=== PATIENT | male | born 1980 | race Caucasian/White ===

== ENCOUNTER → 2020-11-03 13:47 | Outpatient (CLI) | payer MEDICAID, SELFPAY ==
[2020-11-03 14:04] LABS: Chloride 101 mmol/L (98-107)
[2020-11-03 14:05] LABS: Potassium 5.1 mmoL/L (3.5-5.1); Sodium 138 mmol/L (136-145)
[2020-11-03 14:07] LABS: Alanine Aminotransferase 86 U/L (12-78); Albumin Level 4.7 g/dl (3.5-5.0); Albumin/Globulin Ratio 1.5 (1.1-1.8); Alkaline Phosphatase 98 U/L (38-126); Anion Gap 13.1 mEq/L (5-15); Aspartate Amino Transferase 63 U/L (17-59); Bilirubin,Total 0.7 mg/dl (0.2-1.3); Blood Urea Nitrogen 12 mg/dl (9-20); Carbon Dioxide 29 mmol/L (22.0-30.0); Cholesterol 187 mg/dl (140-200); Estimated Glomerular Filt Rate 124 ml/min (>60); GFR (African American) 150 ML/MIN (>60); Globulin 3.2 g/dL (1.3-3.2); Total Protein,Serum 7.9 g/dl (6.3-8.2); Triglycerides 92 mg/dl (30-150); VLDL Cholesterol 18 mg/dL (0-40)
[2020-11-03 14:08] LABS: Calcium 10.1 mg/dl (8.4-10.2); Chol/HDL Ratio 3.2 (1-3.5); Glucose 105 mg/dl (74-100); HDL Cholesterol 58 mg/dl (40-60)
[2020-11-03 14:13] LABS: Basophils # 0.1 K/mm3 (0-0.2); Basophils % 1.2 % (0.1-2.0); Eosinophils # 0.4 K/mm3 (0.0-0.4); Hematocrit 52.7 % (42.0-52.0); Hemoglobin 17.4 g/dL (14.1-18.0); Lymphocytes # 3.4 K/mm3 (0.7-4.5); Lymphocytes % 40.8 % (10-50); Mean Corpuscular Volume 87.9 fl (80-94); Mean Platelet Volume 7.5 fl (7.4-10.4); Monocytes # 0.5 K/mm3 (0.1-1.0); Monocytes % 6.3 % (1.7-9.3); Neutrophils # 3.9 K/mm3 (1.8-7.8); Neutrophils % 46.7 % (37.0-80.0); Platelet Count 322 K/mm3 (142-424); Red Blood Count 5.99 M/mm3 (4.60-6.20); Red Cell Distribution Width 13.1 % (11.5-17.5); White Blood Count 8.4 K/mm3 (4.8-10.8)
[2020-11-03 14:19] LABS: Direct LDL Cholesterol 100.75 mg/dL (100-129)
[2020-11-03 14:25] LABS: T4 (Thyroxine) 11.7 ug/dl (5.53-11.0)
[2020-11-03 14:26] LABS: 25-OH Vitamin D, Total 43.3 ng/mL (30-100)
[2020-11-03 14:39] LABS: Thyroid Stimulating Hormone 1.35 uIU/mL (0.465-4.68)
[2020-11-05 10:11] LABS: Hep A Ab, IgM Negative (Negative); Hepatitis B Core Antibody IgM Negative (Negative); Hepatitis B Surface Antigen Negative (Negative)
[2020-11-05 10:41] LABS: Hepatitis C Antibody >11.0 s/co ratio (0.0-0.9)
== END ==
PROVIDERS: Visit Provider Nurse Practitioner Family
DX: Z00.00 Encounter for general adult medical examination without abnormal findings (principal); E55.9 Vitamin D deficiency, unspecified; B19.20 Unspecified viral hepatitis C without hepatic coma
CPT/HCPCS: 80053; 80061; 80074; 82306; 84436; 84443; 85025

== ENCOUNTER 2024-03-18 08:08 | Emergency (ER) | payer OTHER, SELFPAY ==
[2024-03-18 08:14] VITALS: BP 154/125; PULSE 97; O2SAT 98
[2024-03-18 08:16] VITALS: BP 140/89; PULSE 107; RESP 20; TEMP 36.9; O2SAT 99; BMI 25.8
[2024-03-18 08:31] VITALS: BP 140/89; PULSE 87; O2SAT 99
--- NOTE | 2024-03-18 08:35 | ED_ITS ---
Discharge Plan Disposition Patient Disposition: Home, Self-Care Chief Complaint: Urogenital-Male Prescriptions Prescriptions: No Action No Known Home Medications Referrals Follow up/Referrals: Provider,Referral, [Primary Care Provider] - See instructions Clinical Impressions Clinical Impression: Genital herpes simplex Print Language Print Language: Korean Discharge ED Provider: Karolina Vera General Adult HPI General Chief complaint: Urogenital-Male Stated complaint: painful busted bumps on testicles Time Seen by Provider: 03/18/24 08:42 Mode of Arrival: Ambulatory Source of Information: Patient Limitations: No Limitations Description of Symptoms (Recalled from ER Triage Doc. by RN): pt to ed c/o left testicular boil. pt states he first noticed it monday and since then it has busted open. pt denies urinary symptoms. History of Present Illness HPI narrative: Patient is a 43-year-old with past medical history significant for marijuana use tobacco use disorder and lack of primary care access presents to the emergency department for 3 days of painful blisters on the penis that have busted open. He also notes redness at the area. Patient does have sexual partners unknown if they have sexually transmitted diseases. Denies this urea or increased urinary frequency denies pain with ejaculation or discharge. Has never been screened for sexually transmitted diseases. No diarrhea abdominal pain cough congestion or fever. Related Data Home Medications ?Medication ?Instructions ?Recorded ?Confirmed No Known Home Medications 11/03/20 11/03/20 Allergies Allergy/AdvReac Type Severity Reaction Status Date / Time NO KNOWN ALLERGIES Allergy Uncoded 11/03/20 10:06 [facility] Disclaimer: The information contained in this section may have been updated after the patient was seen, as this information can be updated by other users. Social History Smoking Status: Current every day smoker tobacco type: cigarettes packs per day: 1 alcohol intake: never current occupational status: employed Travel in the last 8 weeks: None ROS Obtained: Yes All systems reviewed & no additional complaints except as documented Physical Exam General General appearance: alert and in no apparent distress Head Head exam: atraumatic and normocephalic Eye Eye exam: Present normal appearance and PERRL ENT ENT exam: Present normal exam, normal oropharynx and other (No oropharyngeal lesions) Neck Neck exam: Present normal inspection Chest Chest inspection: Present normal inspection and symmetric chest wall rise Respiratory Respiratory exam: Absent respiratory distress Cardiovascular Cardiovascular exam: Present regular rate and normal rhythm Abdominal Exam Abdominal exam: Present soft; Absent distention or tenderness exam: Present other (Blistering vesicles on the left lateral penile shaft); Absent testicular tenderness, urethral discharge or scrotal swelling Neurological Exam Neurological exam: Present alert and oriented X3 Lymphatic Lymphatic Findings: no adenopathy Medical Decision Making Gómez Inquiry Pt receiving controlled substance: No Vital Signs: 03/18/24 08:16 Temperature 98.5 F Temperature Source Oral Pulse Rate [Left Radial] 107 H Respiratory Rate 20 Blood Pressure [Right Arm] 140/89 Blood Pressure Mean [Right Arm] 106 02 Sat by Pulse Oximetry 99 Oxygen Delivery Method Room Air Orders (Tests/Meds): ED MEDICATIONS Generic Name Dose Route Start Last Admin Trade Name Freq PRN Reason Stop Dose Admin Ceftriaxone Sodium 500 mg 03/18/24 08:33 Ceftriaxone 500mg Vial IM 03/18/24 08:34 ONCE ONE Lidocaine HCl 0 ml 03/18/24 08:33 Lidocaine 1% 5ml Pf Vial IM 03/18/24 08:34 ONCE ONE ORDERS Category Date Time Status Chlam/Gono/Mycoplasma Panel Stat Lab 03/18/24 08:33 Ordered HIV (1&2) Antibody Rapid Stat Lab 03/18/24 08:33 Ordered Hep C Ab with Reflex to RNA Stat Lab 03/18/24 08:33 Ordered Rapid Plasma Reagin Ab Titer Stat Lab 03/18/24 08:33 Ordered Medical Decision Narrative: Patient is a 43-year-old with past medical history significant for lack of primary care access and tobacco use disorder presents with painful vesicles on penile shaft. Upon presentation hemodynamically stable saturating appropriately on room air afebrile no acute distress. Differential diagnosis includes chlamydia gonorrhea HIV syphilis herpes. Physical exam is most consistent with herpetic lesions. Patient agreeable to prophylactically treat for gonorrhea chlamydia and herpes at this time. Patient given referral for primary care to follow-up hepatitis C HIV RPR gonorrhea and Chlamydia testing. Patient received 500 mg IM ceftriaxone and discharged with prescription for valacyclovir and doxycycline for prophylactic treatment of sexually transmitted infections. Critical Care Critical Care Time Critical Care Time: No
[2024-03-18 09:00] VITALS: BP 132/104; PULSE 79; O2SAT 96
[2024-03-18 10:00] VITALS: BP 125/90; PULSE 69; O2SAT 95
[2024-03-18] MEDS: LIDOCAINE 1% 5ML PF VIAL IM (10:22)
[2024-03-18] MEDS: cefTRIAXone 500MG VIAL 500 MG IM (10:22)
--- NOTE | 2024-03-18 10:26 | PC.NURSE ---
at to update pt on results
[2024-03-18 10:49] VITALS: BP 125/90; PULSE 96; RESP 16; TEMP 36.7
[2024-03-18 16:10] LABS: HIV (1&2) Antibody Rapid NONREACTIVE (NONREACTIVE)
[2024-03-19 14:12] LABS: Rapid Plasma Reagin Ab Titer Non Reactive titer (NonRea<1:1)
[2024-03-20 20:04] LABS: HCV Ab Reactive (Non Reactive)
[2024-03-21 06:16] LABS: Neisseria gonorrhoeae, NAA Negative (Negative)
== END 2024-03-18 10:50 | disposition home or self-care (01) ==
PROVIDERS: Emergency Provider Student in an Organized Health Care Education/Training Program
DX: A60.01 Herpesviral infection of penis (principal); F17.210 Nicotine dependence, cigarettes, uncomplicated; B19.20 Unspecified viral hepatitis C without hepatic coma
CPT/HCPCS: 86593; 87491; 87591; 96372; 99283; J0696

== ENCOUNTER 2024-03-27 16:32 | Outpatient (CLI) | payer MEDICAID, SELFPAY ==
[2024-03-27 17:30] LABS: Basophils # 0.2 K/mm3 (0-0.2); Basophils % 1.8 % (0.1-2.0); Eosinophils # 0.4 K/mm3 (0.0-0.4); Eosinophils % 3.4 % (0.1-12.0); Hematocrit 55.7 % (42.0-52.0); Hemoglobin 17.9 g/dL (14.1-18.0); Lymphocytes # 4.4 K/mm3 (0.7-4.5); Lymphocytes % 38.1 % (10-50); Mean Corpuscular HGB Conc 32.2 g/dL (31.8-35.4); Mean Corpuscular Hemoglobin 30.3 pg (27.0-31.2); Mean Corpuscular Volume 94.1 fl (80-94); Mean Platelet Volume 8.4 fl (7.4-10.4); Monocytes # 0.6 K/mm3 (0.1-1.0); Monocytes % 4.7 % (1.7-9.3); Neutrophils % 51.9 % (37.0-80.0); Platelet Count 275 K/mm3 (142-424); Red Blood Count 5.92 M/mm3 (4.60-6.20); Red Cell Distribution Width 13.9 % (11.5-17.5); White Blood Count 11.6 K/mm3 (4.8-10.8)
[2024-03-27 17:34] LABS: INR 0.95 (0.9-1.1); Prothrombin Time 10.7 seconds (10.1-12.5)
[2024-03-27 18:33] LABS: 25-OH Vitamin D, Total 45.7 ng/mL (30-100)
[2024-03-27 18:35] LABS: Sodium 140 mmol/L (136-145)
[2024-03-27 18:37] LABS: Alanine Aminotransferase 65 U/L (12-78); Albumin Level 4.6 g/dl (3.5-5.0); Albumin/Globulin Ratio 1.4 (1.1-1.8); Anion Gap 11.6 mEq/L (5-15); Aspartate Amino Transferase 55 U/L (17-59); Bilirubin,Total 0.8 mg/dl (0.2-1.3); Blood Urea Nitrogen 12 mg/dl (9-20); Calcium 9.4 mg/dl (8.4-10.2); Carbon Dioxide 32 mmol/L (22.0-30.0); Chloride 101 mmol/L (98-107); Cholesterol 187 mg/dl (140-200); Estimated Glomerular Filt Rate 105 ml/min (>60); GFR (African American) 126 ML/MIN (>60); Globulin 3.2 g/dL (1.3-3.2); Glucose 77 mg/dl (74-100); Potassium 4.6 mmoL/L (3.5-5.1); Total Protein,Serum 7.8 g/dl (6.3-8.2); Triglycerides 168 mg/dl (30-150); VLDL Cholesterol 34 mg/dL (0-40)
[2024-03-27 18:38] LABS: Alkaline Phosphatase 80 U/L (38-126); Chol/HDL Ratio 4.3 (1-3.5); Direct LDL Cholesterol 106 mg/dL (100-129); HDL Cholesterol 43 mg/dl (40-60)
[2024-03-27 21:42] LABS: Hemoglobin A1C 5.8 % (4.0-6.0)
[2024-03-28 14:12] LABS: HIV (1&2) Antibody Rapid NONREACTIVE (NONREACTIVE)
[2024-03-29 05:23] LABS: Hep A Ab, Total Negative (Negative); Hep B Core Ab, Total Positive (Negative); Hep B Surface Ab, Qual Non Reactive (.); Hepatitis B Surface Antigen Negative (Negative)
[2024-03-31 20:28] LABS: HCV Genotype Charge YES; Hepatitis C Genotype 1a (.)
[2024-04-08 10:29] LABS: Hepatitis C Antibody REACTIVE
[2024-04-08 10:30] LABS: Fibrosis Score 0.57; Fibrosis Stage F2; Necroinflammat Activity Score 0.47
[2024-04-08 10:31] LABS: Alpha 2-Macroglobulins, Qn 374 mg/dL; Apolipoprotein A-1 125 mg/dL; Bilirubin, Total 0.4 mg/dL; Haptoglobin 159 mg/dL; Necroinflammat Activity Grade A1-A2
[2024-04-08 10:32] LABS: ALT (SGPT) P5P 62 IU/L; GGT 87 IU/L
== END 2024-03-27 23:59 | disposition home or self-care (01) ==
LOC: LAB 16:33
PROVIDERS: PCP Nurse Practitioner Family; Visit Provider Nurse Practitioner Family
DX: B18.2 Chronic viral hepatitis C (principal)
CPT/HCPCS: 36415; 80053; 80061; 81596; 82306; 83036; 85025; 85610; 86704; 86706; 86708; 87340; 87380; 87522; 87902

== ENCOUNTER 2024-10-04 09:11 | Outpatient (CLI) | payer OTHER, SELFPAY ==
[2024-10-04 10:43] LABS: Alanine Aminotransferase 23 U/L (12-78); Albumin Level 4.9 g/dl (3.5-5.0); Albumin/Globulin Ratio 1.7 (1.1-1.8); Aspartate Amino Transferase 31 U/L (17-59); Blood Urea Nitrogen 9 mg/dl (9-20); Calcium 9.4 mg/dl (8.4-10.2); Carbon Dioxide 27 mmol/L (22.0-30.0); Chloride 105 mmol/L (98-107); Estimated Glomerular Filt Rate 121 ml/min (>60); GFR (African American) 147 ML/MIN (>60); Globulin 2.9 g/dL (1.3-3.2); Glucose 88 mg/dl (74-100); Sodium 137 mmol/L (136-145); Total Protein,Serum 7.8 g/dl (6.3-8.2)
[2024-10-04 11:23] LABS: Anion Gap 9.8 mEq/L (5-15); Potassium 4.8 mmoL/L (3.5-5.1)
[2024-10-04 11:39] LABS: Alkaline Phosphatase 56 U/L (38-126); Bilirubin,Total 0.9 mg/dl (0.2-1.3)
== END 2024-10-04 23:59 | disposition home or self-care (01) ==
LOC: LAB 09:12
PROVIDERS: PCP Nurse Practitioner Family; Visit Provider Nurse Practitioner Family
DX: B18.2 Chronic viral hepatitis C (principal)
CPT/HCPCS: 36415; 80053; 87522

== ENCOUNTER 2025-01-31 20:44 | Emergency (ER) | payer OTHER, SELFPAY ==
[2025-01-31 20:49] VITALS: BP 156/102; PULSE 90; O2SAT 98
[2025-01-31 20:52] VITALS: BP 156/102; PULSE 82; RESP 20; TEMP 36.6; O2SAT 99; BMI 27.2
[2025-01-31 21:00] VITALS: BP 151/107; PULSE 80; O2SAT 95
--- NOTE | 2025-01-31 21:16 | HMH.EDGENADL ---
Discharge Plan Disposition Patient Disposition: Home, Self-Care Prescriptions Prescriptions: New sulfamethoxazole-trimethoprim [Bactrim DS] 800-160 mg tablet 1 tab PO BID 5 Days Qty: 10 0RF No Action sofosbuvir-velpatasvir 400-100 mg tablet 1 tab PO DAILY Qty: 28 2RF valacyclovir 1 gram tablet 1,000 mg PO DAILY 10 Days Qty: 10 0RF Referrals Follow up/Referrals: Steve Joy APRN [Primary Care Provider, Family Practice] - See instructions Activity Restrictions/Add. Instructions Additional Instructions/Restrictions: Antibiotic twice daily for 5 days. Redness will not get better for about 3 days. Call your family doctor to establish care for this visit to the emergency department and schedule follow-up within 48 hours to ensure improvement. If you have any worsening of your condition or any other concerning signs or symptoms, return to the emergency department or your primary care doctor for further evaluation. Clinical Impressions Clinical Impression: Cellulitis Qualifiers: Site of cellulitis: extremity Site of cellulitis of extremity: lower extremity Laterality: right Qualified Code(s): L03.115 - Cellulitis of right lower limb Instructions Patient Instructions: DI for Skin Abscess Print Language Print Language: Fijian Discharge ED Provider: Nj Abernathy General Adult HPI General Chief complaint: Skin/Abscess/Foreign Body Stated complaint: Spider bite right leg Time Seen by Provider: 01/31/25 20:55 Mode of Arrival: Ambulatory Source of Information: Patient Description of Symptoms (Recalled from ER Triage Doc. by RN): patient c/o spider bite to his right garvin last week. patient states he does not know what kind of spider. redness and swelling to the area. History of Present Illness HPI narrative: Please note that above description of symptoms, in this electronic medical record under categorization of recalled from ER triage doctor by RN are reflective of an initial nursing assessment, however, is not reflective of my full history and physical exam that was personally taken and clarified. Consequentially, this preceding description of symptoms, which may include the patient's categorized chief complaint in the EMR, do not reflect my personal clinical impression, and the ultimate description of history of present illness and patient stated complaints should be deferred to this section of the note. Unless stated otherwise or congruent with this section of the note, additional signs, symptoms, or incongruence should be interpreted as inaccurate with my clinical impression. Related Data Previous Rx's ?Medication ?Instructions ?Recorded valacyclovir 1 gram tablet 1,000 mg PO DAILY 10 days #10 tabs 03/18/24 sofosbuvir 400 mg-velpatasvir 100 1 tab PO DAILY #28 tabs 04/04/24 mg tablet sulfamethoxazole 800 1 tab PO BID 5 days #10 tabs 01/31/25 mg-trimethoprim 160 mg tablet (Bactrim DS) Allergies Allergy/AdvReac Type Severity Reaction Status Date / Time NO KNOWN ALLERGIES Allergy Mild Uncoded 03/27/24 15:14 [facility] Disclaimer: The information contained in this section may have been updated after the patient was seen, as this information can be updated by other users. 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, chronic Surgical History (Updated 03/27/24 @ 15:16 by Nelly Buck CMA) History of knee surgery Social History (Updated 03/27/24 @ 15:16 by Nelly Buck CMA) Smoking Status: Current every day smoker tobacco type: cigarettes packs per day: 1 alcohol intake: never substance use type: marijuana and IV drugs current occupational status: employed and unemployed Travel in the last 8 weeks?: None Have you lived/traveled outside [place] in past 30 days?: No Contact w/someone who lives/traveled outside US past 30 days?: No Exposure to someone with infectious disease in past 14 days?: No Do you have a fever (greater than 100.4 F or 38 C)?: No Have you tested positive for COVID-19?: No Exposed to someone with COVID-19 in past 14 days?: No Do you have a sore throat?: No Do you have a cough?: No Do you have any weakness?: No Do you have any diarrhea?: No Are you experiencing any unusual bleeding?: No Do you have any muscle aches/pain?: No Do you have any abdominal pain?: No Are you experiencing loss of taste or smell?: No Other Medical History Have you received the Pneumonia Vaccine: No ROS Obtained: Yes All systems reviewed & no additional complaints except as documented Physical Exam General General appearance: alert Head Head exam: atraumatic and normocephalic Eye Eye exam: Present normal appearance, PERRL and EOMI Neck Neck exam: Present normal inspection, full ROM and trachea midline Respiratory Respiratory exam: Absent respiratory distress, wheezes, stridor, accessory muscle use or prolonged expiratory phase Cardiovascular Cardiovascular exam: Present other (Pulses equal symmetric in upper and lower extremities) Abdominal Exam Abdominal exam: Present soft; Absent distention, tenderness or pulsatile mass Extremities Exam Extremities exam: Present other (Folliculitis with associated silver and induration on the lateral aspect of the proximal right fibula); Absent edema Neurological Exam Neurological exam: Present alert, oriented X3 and CN II-XII intact; Absent motor sensory deficit Skin Skin exam: Present warm and dry; Absent diaphoresis or erythema Medical Decision Making Medical Records Medical records reviewed: Yes I reviewed the patient's medical records. Screening: Per USPSTF and CDC recommendations, given the prevalence of disease in our region, it is our hospital?s policy to screen for HIV and viral Hepatitis for all patients aged 18 and over and those with ongoing risk factors. Gómez Inquiry Pt receiving controlled substance: No Gómez was queried for this patient: No Vital Signs: 01/31/25 20:49 01/31/25 20:52 01/31/25 21:00 Temperature 97.8 F Temperature Source Oral Pulse Rate 90 80 Pulse Rate [Left] 82 Respiratory Rate 20 Blood Pressure 156/102 H 151/107 H Blood Pressure [Right Arm] 156/102 H Blood Pressure Mean [Right Arm] 120 Blood Pressure Source [Right Arm] Automatic Cuff Blood Pressure Position [Right Arm] Sitting 02 Sat by Pulse Oximetry 98 99 95 Oxygen Delivery Method Room Air Orders (Tests/Meds): ED MEDICATIONS Discontinued Medications Generic Name Dose Route Start Last Admin Trade Name Sladeq PRN Reason Stop Dose Admin Trimethoprim/Sulfamethoxazole 1 each 01/31/25 21:04 Sulfa/Trimethoprim 1 Tablet PO 01/31/25 21:05 ONCE ONE ORDERS Category Date Time Status POCUS Point of Care (ER Only) Stat Exams 01/31/25 21:04 Ordered Medical Decision Narrative: 44-year-old male presenting with leg bite versus cellulitis versus abscess. States that he was in [facility] for the past few days. It popped up while he was there. Has been draining frankly purulent fluid since that time. Redness seems to be spreading. No systemic signs or symptoms, came in for further evaluation. On arrival, very clinically well. He has 2 cm circular induration on the proximal fibula with silver in the middle he stated he just drained out purulent fluid prior to arrival. Overlying ointment on it. Differential includes cellulitis versus abscess. Bedside [id number] ultrasound was performed. On independent interpretation, cellulitis without abscess. Patient was given first dose of Bactrim and discharged in hemodynamically stable condition. [employer] disclaimer Much of this encounter note is an electronic marketing program coordinator spoken language to printed text. Electronic marketing program coordinator of the spoken language may permit errors. Although I have reviewed the note, some errors may still exist. Procedures Limited Ultrasound Indication:: Limited soft tissue ultrasound Indication: Soft tissue swelling, redness and purulence Identified structures: Location: Proximal/lateral right lower leg Findings: Cellulitis without abscess of the right lower leg Impression: Cellulitis without abscess of the right lower leg Images were saved to permanent archive The study was technically adequate Soft Tissue CPT Codes: CPT Neck: 26385-60 CPT Upper extremity: 30576-32 CPT Axilla: 45441-53 CPT Chest wall: 25536-42 CPT Breast: 68249-86-JB/LT (complete), 96703-58-JB/LT (limited), CPT Upper Back: 92052-28 CPT Lower Back: 46540-36 CPT Abdominal Wall: 61415-36 CPT Pelvic Wall: 41948-44 CPT Lower Extremity: 44607-89 CPT Other Soft Tissue: 09113-85 This study was performed by me, and I personally interpreted all images/videos. Based on my clinical judgement, these images were adequate and did not necessitate further imaging. Critical Care Critical Care Time Critical Care Time: No
[2025-01-31] MEDS: SULFA/TRIMETHOPRIM 1 TABLET 1 EACH PO (21:21)
[2025-01-31 21:26] VITALS: BP 151/107; PULSE 86; RESP 20; TEMP 36.6; O2SAT 100
== END 2025-01-31 21:26 | disposition home or self-care (01) ==
PROVIDERS: Emergency Provider Emergency Medicine; PCP Nurse Practitioner Family
DX: L03.115 Cellulitis of right lower limb (principal); F17.210 Nicotine dependence, cigarettes, uncomplicated
CPT/HCPCS: 99283